=== PATIENT | male | born 1945 | race Caucasian/White ===

== ENCOUNTER 2017-11-13 17:08 | Emergency (ER) | payer MEDICARE ==
[2017-11-13 17:08] VITALS: BMI 26.1
[2017-11-13 18:27] VITALS: O2SAT 97
[2017-11-13] MEDS ORDERED: Aspirin 325 mg EC Tablets PO STA (18:43)
[2017-11-13] MEDS ORDERED: Aspirin 325 mg EC Tablets PO ONE (18:57)
[2017-11-13 19:06] LABS: BASO # 0.1 K/uL (0.0-0.2); BASO % 1.2 % (0.0-2.0); EOS # 0.4 K/uL (0.0-0.7); EOS % 5.5 % (0.0-4.0); HEMOGLOBIN 16.9 g/dL (12.0-18.0); LYMPH % 31.7 % (20.0-40.0); MEAN CELL VOLUME 85.8 fL (80.0-94.0); MEAN CORPUSCULAR HEMOGLOBIN 29.2 pg (27.0-31.0); MEAN PLATELET VOLUME 8.9 fL (7.2-11.7); MONO # 0.5 K/uL (0.0-0.8); MONO % 8.5 % (0.0-10.0); NEUT # 3.4 K/uL (1.8-7.0); NEUT % 53.1 % (50.0-75.0); RBC 5.79 Mil/uL (4.40-5.90); RED CELL DISTRIBUTION WIDTH 13.4 % (11.5-14.5); WHITE BLOOD COUNT 6.3 K/uL (4.8-10.8)
[2017-11-13 19:13] LABS: ALB/GLOB RATIO 1.2 (1.0-2.1); ALBUMIN 4.4 g/dL (3.5-5.0); ALT/SGPT 102 U/L (21-72); AST/SGOT 45 U/L (17-59); BLOOD UREA NITROGEN 14 mg/dL (9-20); CALCIUM 8.6 mg/dl (8.6-10.4); GFR AFRICAN-AMERICAN > 60; GFR NON-AFRICAN AMERICAN > 60
[2017-11-13 19:16] LABS: INR 0.9; PROTHROMBIN TIME 10.4 SECONDS (9.7-12.2)
[2017-11-13 19:26] LABS: B-TYPE NATRIURETIC PEPTIDE 90.8 pg/mL (0-900)
[2017-11-13 19:29] VITALS: RESP 16
--- NOTE | 2017-11-13 20:11 | C.PDOC ---
History Of Present Illness 72 year old male is referred from Dr. Jarvis's office, patient was seen there for her BP found to be elevated. 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 Time Seen by Provider: 11/13/17 18:03 Chief Complaint (Nursing): High Blood Pressure History Per: Patient History/Exam Limitations: no limitations Onset/Duration Of Symptoms: Hrs Current Symptoms Are (Timing): Still Present Associated Symptoms: Chest Pain Severity: None Recent travel outside of the [place]: No Additional History Per: Patient Past Medical History Reviewed: Historical Data, Nursing Documentation, Vital Signs Vital Signs: Last Vital Signs Temp 98.5 F 11/13/17 17:12 Pulse 81 11/13/17 19:28 Resp 16 11/13/17 19:28 BP 171/91 H 11/13/17 19:28 Pulse Ox 97 11/13/17 20:21 - Medical History PMH: Arthritis, HTN, Hypercholesterolemia, TIA (2007) Denies: Chronic Kidney Disease Surgical History: No Surg Hx Family History: States: Unknown Family Hx - Social History Hx Alcohol Use: No Hx Substance Use: No - Immunization History Hx Tetanus Toxoid Vaccination: No Hx Influenza Vaccination: No Hx Pneumococcal Vaccination: No Review Of Systems Constitutional: Negative for: Fever, Chills Cardiovascular: Positive for: Chest Pain, Other (elevated BP) Respiratory: Negative for: Cough, Shortness of Breath Gastrointestinal: Negative for: Nausea, Vomiting, Abdominal Pain Skin: Negative for: Rash Neurological: Negative for: Weakness, Numbness, Headache, Dizziness Physical Exam - Physical Exam Appears: Non-toxic, No Acute Distress Skin: Normal Color, Warm, Dry Head: Atraumatic, Normacephalic Nose: No Discharge, No Deformity Oral Mucosa: Moist Neck: Normal ROM, Supple Chest: Symmetrical Cardiovascular: Rhythm Regular, No Murmur Respiratory: Normal Breath Sounds, No Rales, No Rhonchi, No Wheezing Gastrointestinal/Abdominal: Soft, No Tenderness, No Distention, No Rebound Extremity: Normal ROM, No Pedal Edema, No Calf Tenderness, No Deformity, No Swelling Neurological/Psych: Oriented x3, Normal Speech, Normal Cognition Gait: Steady ED Course And Treatment - Laboratory Results Result Diagrams: 11/13/17 18:54 11/13/17 18:54 Lab Interpretation: Normal (trop neg.) ECG: Interpreted By Me ECG Rhythm: Sinus Rhythm, R BBB ECG Interpretation: Normal Rate From EC O2 Sat by Pulse Oximetry: 97 (On RA) Pulse Ox Interpretation: Normal - Radiology CXR: Interpreted by Me CXR Interpretation: Yes: No Acute Disease Progress Note: 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 Disposition Doctor Will See Patient In The: Office Counseled Patient/Family Regarding: Studies Performed, Diagnosis - Disposition Referrals: Shelly Jarvis MD [Medical Doctor] - Disposition: HOME/ ROUTINE Disposition Time: 20:20 Condition: GOOD Additional Instructions: ADD Hydralazine 10 mg THREE times a day (8AM, 2pm, 7pm) and follow-up w Dr. Jarvis. Instructions: Hypertension (ED) Forms: [employer] (E[place]ian) - Clinical Impression Clinical Impression: Uncontrolled hypertension - Scribe Statement The provider has reviewed the documentation as recorded by the Scribe Nikko Espitia All medical record entries made by the Scribe were at my direction and personally dictated by me. I have reviewed the chart and agree that the record accurately reflects my personal performance of the history, physical exam, medical decision making, and the department course for this patient. I have also personally directed, reviewed, and agree with the discharge instructions and disposition.
[2017-11-13 20:38] VITALS: BP 170/96; PULSE 83; TEMP 97.5
--- NOTE | 2017-11-14 08:27 | RAD ---
PROCEDURE: CHEST RADIOGRAPH, 1 VIEW HISTORY: SOB COMPARISON: Comparison is made to 10/30/2012 FINDINGS: LUNGS: Clear. PLEURA: No pneumothorax or pleural fluid seen. CARDIOVASCULAR: Normal. OSSEOUS STRUCTURES: No significant abnormalities. VISUALIZED UPPER ABDOMEN: Normal. OTHER FINDINGS: None. IMPRESSION: No active disease.
--- NOTE | 2017-11-16 12:39 | CARD ---
APPROVED REPORT EKG Measurement Heart [id number] <Conclusion> Normal sinus rhythm Possible Left atrial enlargement Right bundle branch block Inferior infarct, age undetermined Abnormal ECG
== END 2017-11-13 20:40 | disposition home or self-care (01) ==
LOC: C.ER 17:08
DX: I10 Essential (primary) hypertension (principal); E78.00 Pure hypercholesterolemia, unspecified; Z86.73 Personal history of transient ischemic attack (TIA), and cerebral infarction without residual deficits